=== PATIENT | female | born 1990 | race Caucasian/White ===

== ENCOUNTER 2016-10-12 11:57 | Emergency (ER) | payer OTHER ==
[~2016-10-12] VITALS: Ht 157.5 cm; Wt 63.6 kg
[~2016-10-12 11:57] MED LIST: NOCURR; TERB250 PO
[2016-10-12 17:06] VITALS: BP 125/61
== END 2016-10-12 18:15 | disposition home or self-care (01) ==
LOC: EMS 12:03
DX: J02.9 Acute pharyngitis, unspecified (principal)
CPT/HCPCS: 99283